=== PATIENT | female | born 1995 | race Two or more races ===

== ENCOUNTER 2020-08-31 18:08 | Emergency (ER) | payer OTHER ==
[~2020-08-31] VITALS: Ht 157.5 cm; Wt 59.0 kg
[2020-08-31 18:08] VITALS: BP 129/48
== END 2020-08-31 21:17 | disposition left against medical advice (07) ==
LOC: ER 18:11
DX: R51.9 Headache, unspecified (principal); Z53.21 Procedure and treatment not carried out due to patient leaving prior to being seen by health care provider